=== PATIENT | female | born 1975 | race Caucasian/White ===

== ENCOUNTER 2022-11-29 21:17 | Emergency (ER) | payer SELFPAY ==
[~2022-11-29] VITALS: Ht 177.8 cm; Wt 83.0 kg
[~2022-11-29 21:17] MED LIST: ALBU18HF2 IH; COL100C PO; HYDR-3965 PO; IBUP-1984 PO; MACROBID PO; PHEN-786 PO
[2022-11-30 01:11] LABS: CLARITY,URINE CLEAR (Clear); COLOR,URINE YELLOW (Yellow); GLUCOSE, URINE NEGATIVE (Neg); KETONES,URINE NEGATIVE (Neg); LEUKOCYTE ESTERASE ,URINE NEGATIVE (Neg); NITRITES, URINE NEGATIVE (Neg); OCCULT BLOOD,URINE NEGATIVE (Neg); PROTEIN,URINE NEGATIVE (Neg); UROBILINOGEN,URINE 0.2 E.U/dL (0.2-1.0)
[2022-11-30 01:12] LABS: URINE HCG NEGATIVE (NEG)
[2022-11-30 01:32] LABS: UA COLLECTION TYPE CLN CATCH MIDSTREAM
--- NOTE | 2022-11-30 01:34 | NUR ---
patient put in room
[2022-11-30] MEDS ORDERED: ondansetron/PF 4mg/2ml inj IV ONE (01:40)
[2022-11-30] MEDS ORDERED: normal saline 1000ML IV soln IVB ONE (01:40)
[2022-11-30] MEDS ORDERED: morphine 4 MG/ML inj SYRINge IV ONE (01:40)
[2022-11-30 01:54] LABS: BASOPHILS % (AUTO) 0.5 % (0-1); EOSINOPHILS # (AUTO) 0.1 X10'3 (0-0.9); EOSINOPHILS % (AUTO) 1.5 % (0-6); HEMATOCRIT 39.7 % (35.0-45.0); HEMOGLOBIN 13.6 g/dl (12.0-16.0); LYMPHOCYTES # (AUTO) 3.3 X10'3 (1.1-4.8); LYMPHOCYTES % (AUTO) 42.3 % (21-51); MEAN CORPUSCULAR HEMOGLOBIN 32.4 PG (27.0-31.0); MEAN CORPUSCULAR HGB CONC 34.2 g/dL (33.0-36.5); MEAN CORPUSCULAR VOLUME 94.7 FL (78-98); MEAN PLATELET VOLUME 8.8 FL (7.4-10.4); MONOCYTES # (AUTO) 0.4 X10'3 (0-0.9); MONOCYTES % (AUTO) 4.8 % (2-12); NEUTROPHILS % (AUTO) 50.9 % (42-75); PLATELET COUNT 212 X10'3 (140-440); RED CELL DISTRIBUTION WIDTH 12.5 % (11.5-14.5); WHITE BLOOD COUNT 7.9 X10'3 (4.5-11.0)
[2022-11-30 02:00] LABS: ALANINE AMINOTRANSFERASE 20 U/L (12-78); ALBUMIN 4.4 G/DL (3.4-5.0); ALBUMIN/GLOBULIN RATIO 1.6 (1.1-1.5); ALKALINE PHOSPHATASE 73 IU/L (46-116); ANION GAP 10 (8-16); ASPARTATE AMINO TRANSFERASE 16 U/L (10-37); BILIRUBIN,TOTAL 0.3 MG/DL (0.1-1.0); BLOOD UREA NITROGEN 6 MG/DL (7-18); BUN/CREATININE RATIO 7.4 (6.6-38.0); CALCIUM 9.8 MG/DL (8.5-10.1); CHLORIDE 104 MMOL/L (99-107); CREATININE 0.81 MG/DL (0.40-0.90); GLUCOSE 99 MG/DL (70-104); LIPASE 83 U/L (73-393); SODIUM 138 MMOL/L (135-145); TOTAL CARBON DIOXIDE 24.4 MMOL/L (24-32); TOTAL PROTEIN 7.1 G/DL (6.4-8.2); eGFR 76 ML/MIN
[2022-11-30] MEDS ORDERED: iohexol 300mg/ml 100ml inj. ONE (02:33)
[2022-11-30 04:59] VITALS: BP 96/51
== END 2022-11-30 05:54 | disposition home or self-care (01) ==
LOC: ER 21:18
DX: R10.11 Right upper quadrant pain (principal); J45.909 Unspecified asthma, uncomplicated; Z88.1 Allergy status to other antibiotic agents; Z88.2 Allergy status to sulfonamides; Z88.6 Allergy status to analgesic agent; Z88.8 Allergy status to other drugs, medicaments and biological substances
CPT/HCPCS: 36415; 74177; 80053; 81003; 81025; 83690; 85025; 96361; 96374; 96375; 99285; J2270; J2405; J3490; J7030; Q9967

== ENCOUNTER → 2023-11-29 | Emergency (ER) | payer BC, OTHER ==
[~2023-11-29] VITALS: Ht 177.8 cm; Wt 74.5 kg
[2023-11-29 10:31] LABS: BASOPHILS % (AUTO) 0.6 % (0-1); EOSINOPHILS # (AUTO) 0.1 X10'3 (0-0.9); EOSINOPHILS % (AUTO) 1.5 % (0-6); HEMOGLOBIN 15.1 g/dl (12.0-16.0); LYMPHOCYTES # (AUTO) 2.1 X10'3 (1.1-4.8); LYMPHOCYTES % (AUTO) 33.7 % (21-51); MEAN CORPUSCULAR HEMOGLOBIN 32.8 PG (27.0-31.0); MEAN CORPUSCULAR HGB CONC 34.3 g/dL (33.0-36.5); MEAN CORPUSCULAR VOLUME 95.5 FL (78-98); MEAN PLATELET VOLUME 8.6 FL (7.4-10.4); MONOCYTES # (AUTO) 0.4 X10'3 (0-0.9); MONOCYTES % (AUTO) 5.7 % (2-12); NEUTROPHILS # (AUTO) 3.7 X10'3 (1.8-7.7); NEUTROPHILS % (AUTO) 58.5 % (42-75); PLATELET COUNT 228 X10'3 (140-440); RED CELL DISTRIBUTION WIDTH 12.3 % (11.5-14.5); WHITE BLOOD COUNT 6.4 X10'3 (4.5-11.0)
[2023-11-29 10:43] LABS: ALANINE AMINOTRANSFERASE 23 U/L (12-78); ALBUMIN 4.5 G/DL (3.4-5.0); ALBUMIN/GLOBULIN RATIO 1.4 (1.1-1.5); ALKALINE PHOSPHATASE 85 IU/L (46-116); ANION GAP 11 (8-16); ASPARTATE AMINO TRANSFERASE 29 U/L (10-37); BILIRUBIN,TOTAL 0.5 MG/DL (0.1-1.0); BLOOD UREA NITROGEN 10 MG/DL (7-18); BUN/CREATININE RATIO 15.2 (10.0-20.0); CALCIUM 9.8 MG/DL (8.5-10.1); CHLORIDE 101 MMOL/L (99-107); CREATININE 0.66 MG/DL (0.40-0.90); GLUCOSE 105 MG/DL (70-104); SODIUM 136 MMOL/L (135-145); TOTAL CARBON DIOXIDE 24.1 MMOL/L (24-32); TOTAL PROTEIN 7.7 G/DL (6.4-8.2); eCRCL 114 ML/MIN; eGFR > 90 ML/MIN
[2023-11-29 10:51] LABS: PRO BRAIN NATRIURETIC PEPTIDE 44 PG/ML (0-125)
[2023-11-29 10:52] LABS: POTASSIUM 4.2 MMOL/L (3.5-5.1)
[2023-11-29 11:48] VITALS: BP 125/78; PULSE 71; RESP 16; TEMP 98.6; O2SAT 95
== END | disposition home or self-care (01) ==
LOC: ER 10:08
DX: R07.9 Chest pain, unspecified (principal); Z53.21 Procedure and treatment not carried out due to patient leaving prior to being seen by health care provider
CPT/HCPCS: 29125; 36415; 71045; 80053; 83880; 84484; 85025; 93005; 99281; 99285

== ENCOUNTER 2025-05-23 16:34 | Emergency (ER) | payer OTHER ==
[~2025-05-23] VITALS: Ht 180.3 cm; Wt 72.7 kg
[2025-05-23 16:36] VITALS: BP 127/61; PULSE 61; RESP 18; TEMP 98.2; O2SAT 99
[2025-05-23] MEDS: TETanus/Pertussis (Acell)/Diphther VAC/PF (Tdap-Adult) 0.5ml syringe IMVAC ONE (17:10)
--- NOTE | 2025-05-23 17:23 | Physician Documentation ---
History of Present Illness ~ Chief Complaint: Laceration Stated Complaint: LAC ON LT INDEX FINGER Time Seen by MD: 16:48 OK to notify your PCP?: Yes Primary Medical Doctor: enoch Source: patient Mode of Arrival: POV Exam Limitations: no limitations HPI 50-year-old right-handed female with chief complaint laceration to her left index finger that occurred just prior to arrival about an hour ago. She states she was cutting bread at home and she ended up cutting her left index finger with a knife. Her last tetanus immunization was approximately 2018. She is able to bend her finger but states it is painful to do so. No pre arrival treatment. She states right after it happened she does grabbed her finger and because of how much it was bleeding she wrapped it in a towel and drove to the ER. No other concerns or complaints. Tetanus Within 5 Years: Yes Medication Reconciliation Allergies: Coded Allergies: amoxicillin (Verified Allergy, Severe, ANAPHYLAXIS, 11/29/22) clavulanic acid (Verified Allergy, Severe, ANAPHYLAXIS, 11/29/22) propoxyphene (Verified Allergy, Severe, ANAPHYLAXIS, 11/01/12) Sulfa (Sulfonamide Antibiotics) (Unverified Allergy, Intermediate, HIVES, 11/01/12) acetaminophen (Unverified Allergy, Unknown, 11/29/22) propoxyphene napsylate (Unverified Allergy, Unknown, 11/29/22) Uncoded Allergies: NSAIDS (Allergy, Severe, ANAPHYLAXIS, 11/29/22) Scheduled Albuterol Sulfate (Ventolin Hfa), 2 PUFFS IH Q6H PRN SOB, (Reported) Docusate Sodium* (Colace*), 100 MG PO BID, (Reported) Hydrocodone Bit/Acetaminophen 5/325 MG ([place] 5/325 MG), 1 TAB PO BID, (Reported) Ibuprofen* (Motrin*), 400 MG PO BID, (Reported) Nitrofurantoin/Nitrofuran Mac* (Macrobid*), 100 MG PO BID, (Reported) Phenazopyridine Hcl (Pyridium tablet), 100 MG PO TIDWM, (Reported) Past Medical History Past Medical History: No Pertinent History, Asthma, Bowel Obstruction, Hernia Past Surgical History: abdominal surgery Other Past Surgical History: Hernia repair, partial bowel resection Alcohol Use: None Drug Use: none Lives with: Spouse, Family Lives In: Home Occupation: employed, other Review of Systems All Other Systems at this time: Reviewed and Negative Physical Exam Vital Signs: Temperature: 98.2, Source: Oral, Heart Rate: 61, Respiratory Rate: 18, BP: 127/61, Pulse Oximetry: 99, Weight: 72.730 Physical Exam General Appearance: Alert, WD/WN. NAD. HEENT: NCAT, PERRL, EOMI. Neck: Supple, trachea midline. Lungs: Breathing unlabored Skin: Warm/dry, normal color. LEFT INDEX FINGER LACERATION ALONG DIGIT, NOT ACTIVELY BLEEDING, EDGES OF SKIN ARE WELL APPROXIMATED, NO EDEMA OR ECCHYMOSIS, AROM OF DIGIT IS FULL. CAP REFILL LESS THAN 2SECONDS AT FINGER TIP. Neurological: Alert and oriented x4, normal gait. Psychiatric: Affect congruent with mood. Procedures Splinting Location: left index finger Pre-Made Type: digit splint Pre-Proc Neuro Vasc Exam: normal Post-Proc Neuro Vasc Exam: normal Tolerated Procedure Well?: yes, no complications Laceration/Wound Repair Laceration : Location: left index finger Length (cm): 2 Margins: revised Foreign Body: not identified Repaired: skin Wound Repaired With: Dermabond Splint Applied?: Yes Type of Splint Applied: digit splint Progress Results/Orders Results/Orders Orders - GIOVANNI THOMPSON General Nursing Order (05/23/25 16:55) Dermabond To Bedside (05/23/25 16:55) Completed Orders - GIOVANNI THOMPSON Tetanus/Pertuss/Diph Acell/Pf (Boostrix (05/23/25 16:55) Medications Received in ER Medications (Trade) Dose Ordered Sig/Liliana Route PRN Reason Start Time Stop Time Status Last Admin Dose Admin (Boostrix vaccine syringe) 0.5 ml ONCE ONCE IMVAC 05/23/25 16:55 05/23/25 16:57 DC 05/23/25 17:10 0.5 ML Vital Signs 05/23/25 16:36 Temp 98.2 Pulse 61 Resp 18 B/P (MAP) 127/61 Pulse Ox 99 Medical Decision Making Differential Dx:Considerations: Include: Abrasion, Avulsion, Contusion, Laceration, Fracture, Hematoma, Neurovascular injury, Retained foreign body, Other Additional Comments DUE TO THE LOCATION OF THE LACERATION BEING ON THE DORSAL SURFACE RATHER THAN PALMAR SURFACE LESS LIKELY FOR TENDON INJURY PATIENT ALSO WAS ABLE TO BEND HER FINGER IN TRIAGE. LACERATION APPEARED VERY SHALLOW, NO ACTIVE BLEEDING, NO SURROUNDING EDEMA, XRAY CONSIDERED TO R/O OPEN FRACTURE BUT GIVEN SHALLOW NATURE OF LACERATION UNLIKELY. Departure Time of Disposition: 17:17 Disposition: 01 HOME / SELF CARE / HOMELESS Impression: Primary Impression: Laceration Additional Impression: Immunization due Condition: Stable Discharge Instructions: Laceration Care, Adult, [id number] Additional Instructions: DO NOT GET WET X 72HOURS I AM NOT CONCERNED ABOUT TENDON INJURY DUE TO LOCATION AND THE FACT THAT YOU WHERE ABLE TO BEND YOUR FINGER SOME, IT WAS JUST PAINFUL WHEN DOING SO WE UPDATED YOUR TETANUS IZ IF SIGNS OR SYMPTOMS OF INFECTION RETURN TO ER Referrals: NO PRIMARY CARE PROVIDER (PCP) Education Educated: Patient Educated regarding: diagnosis, treatment, need for follow up Signature Scribe Signature: X Attestation: GIOVANNI WATTS May 23, 2025 17:23
== END 2025-05-23 17:40 | disposition home or self-care (01) ==
LOC: ER 16:35
DX: S61.211A Laceration without foreign body of left index finger without damage to nail, initial encounter (principal); Z88.1 Allergy status to other antibiotic agents; Z88.2 Allergy status to sulfonamides; Z88.6 Allergy status to analgesic agent; Z98.890 Other specified postprocedural states; Z79.899 Other long term (current) drug therapy; W26.0XXA Contact with knife, initial encounter; Y93.89 Activity, other specified; Y92.89 Other specified places as the place of occurrence of the external cause; Y99.8 Other external cause status
CPT/HCPCS: 12001; 90471; 90715; 99283

== ENCOUNTER 2025-06-20 12:33 | Emergency (ER) | payer OTHER ==
[~2025-06-20] VITALS: Ht 177.8 cm; Wt 72.7 kg
[2025-06-20 12:38] VITALS: TEMP 98.4
--- NOTE | 2025-06-20 13:13 | Physician Documentation ---
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 She states that she was not her usual state of health this morning, noticed some back pain while lifting a patient. The pain gradually got worse. She went home, took Tylenol and baclofen. She bent over. She felt a sudden pop and marked worsening of back pain accompanied by urinary incontinence. She also reports numbness around her anus. No palliating factors. Aggravated by any motion. Did not experienced this in the past, this is markedly different from her chronic back pain. Able to ambulate, denies any lower extremity weakness or paresthesias. Denies history of IV drug use ever. Does not take blood thinners. Denies any concern for tobacco, alcohol or illicit substances use Medication Reconciliation Allergies: Coded Allergies: amoxicillin (Verified Allergy, Severe, ANAPHYLAXIS, 06/20/25) clavulanic acid (Verified Allergy, Severe, ANAPHYLAXIS, 06/20/25) propoxyphene (Verified Allergy, Severe, ANAPHYLAXIS, 06/20/25) Sulfa (Sulfonamide Antibiotics) (Unverified Allergy, Intermediate, HIVES, 06/20/25) acetaminophen (Unverified Allergy, Unknown, 06/20/25) propoxyphene napsylate (Unverified Allergy, Unknown, 06/20/25) Uncoded Allergies: NSAIDS (Allergy, Severe, ANAPHYLAXIS, 11/29/22) Scheduled Albuterol Sulfate (Ventolin Hfa), 2 PUFFS IH Q6H PRN SOB, (Reported) Docusate Sodium* (Colace*), 100 MG PO BID, (Reported) Hydrocodone Bit/Acetaminophen 5/325 MG ([place] 5/325 MG), 1 TAB PO BID, (Reported) Ibuprofen* (Motrin*), 400 MG PO BID, (Reported) Nitrofurantoin/Nitrofuran Mac* (Macrobid*), 100 MG PO BID, (Reported) Phenazopyridine Hcl (Pyridium tablet), 100 MG PO TIDWM, (Reported) Past Medical History Past Medical History: No Pertinent History, Asthma, Bowel Obstruction, Hernia Past Surgical History: abdominal surgery Other Past Surgical History: Hernia repair, partial bowel resection Alcohol Use: None Drug Use: none Lives with: Spouse, Family Lives In: Home Occupation: employed, other Review of Systems ROS 10 point review of systems was performed and unless noted above in HPI is negative for acute process/complaint. Physical Exam Physical Exam Vital Signs: Temperature: 98.4, Source: Temporal, Heart Rate: 102, Respiratory Rate: 16, BP: 151/89, Pulse Oximetry: 98, Weight: 72.730 Oxygen Flow Rate: 0 Physical Exam GENERAL: Awake, alert, oriented, GCS 15, no apparent distress, non-toxic appearing, answers questions, follows commands appropriately. HEENT: Atraumatic, normocephalic, pupils equal, extraocular muscles intact, sclerae anicteric, mucus membranes moist, oropharynx is clear, no stridor. NECK: supple, full active range of motion, trachea midline, no thyromegaly, no lymphadenopathy, no JVD. CARDIOVASCULAR: regular rate/rhythm, no murmurs/gallops/rubs, Pulses are 2+ in all extremities and symmetric. Capillary refill less than 2 seconds. PULMONARY: Nonlabored, good air movement ,no respiratory distress, speaking in full sentences, clear to auscultation bilaterally, no wheezing, no ronchi, no rales, no accessory muscle use. GASTROINTESTINAL: Soft, non-tender, non-distended, normal active bowel sounds, no organomegaly, no pulsatile masses, no CVA tenderness. NEUROLOGIC: Lucid with normal mental status. Normal facial symmetry. Moves all extremities symmetrically and with purpose. No truncal ataxia. Speech is fluid without evidence of dysarthria or aphasia, no focal deficits appreciated. MUSCULOSKELETAL: There is full range of motion of all extremities. There is no joint pain or joint swelling or joint erythema. There is no muscle pain or tenderness or swelling. EXTREMITIES: warm, well-perfused, no cyanosis, no clubbing, no edema, no acute deformities. Skin: warm, dry, no rashes or lesions, no jaundice, no petechiae orpurpura. No ecchymosis. PSYCHIATRIC: Normal affect, normal insight, normal concentration. Focused exam: [] Progress Results/Orders Results/Orders Orders - MINA POE DO Ct Lumbar Spine (06/20/25 13:07) Mri Lumbar Spine (06/20/25 15:00) Urinalysis, Cult If Indicated (06/20/25 13:07) Completed Orders - MINA POE DO Ct Lumbar Spine (06/20/25 13:07) Mri Lumbar Spine (06/20/25 15:00) Cbc/Diff (06/20/25 13:07) CK (06/20/25 13:07) ESR (06/20/25 13:07) C-Reactive Protein (06/20/25 13:07) CMP (06/20/25 13:07) Morphine 4mg/Ml Inj. (Morphine Inj.) (06/20/25 13:15) Ondansetron Inj. (Zofran 4mg/2ml Vial) (06/20/25 13:15) Medications Received in ER Medications (Trade) Dose Ordered Sig/Liliana Route PRN Reason Start Time Stop Time Status Last Admin Dose Admin (morphine inj.) 4 mg ONCE ONCE IV 06/20/25 13:15 06/20/25 13:23 DC 06/20/25 13:43 4 MG (Zofran 4mg/2ml vial) 4 mg ONCE ONCE IV 06/20/25 13:15 06/20/25 13:23 DC 06/20/25 13:43 4 MG Vital Signs 06/20/25 06/20/25 06/20/25 12:38 13:43 13:43 Temp 98.4 Pulse 102 79 Resp 16 16 16 B/P (MAP) 151/89 120/70 (87) Pulse Ox 98 98 O2 Flow Rate 0 Laboratory Tests Test 06/20/25 13:28 White Blood Count 6.2 Red Blood Count 3.82 L Hemoglobin 12.5 Hematocrit 36.0 Mean Corpuscular Volume 94.3 Mean Corpuscular Hemoglobin 32.8 H Mean Corpuscular Hemoglobin Concent 34.7 Red Cell Distribution Width 12.5 Platelet Count 209 Mean Platelet Volume 9.1 Neutrophils (%) (Auto) 53.0 Lymphocytes (%) (Auto) 39.6 Monocytes (%) (Auto) 5.1 Eosinophils (%) (Auto) 1.9 Basophils (%) (Auto) 0.4 Neutrophils # (Auto) 3.3 Lymphocytes # (Auto) 2.5 Monocytes # (Auto) 0.3 Eosinophils # (Auto) 0.1 Basophils # (Auto) 0.0 CBC Comment Erythrocyte Sedimentation Rate 4 Sodium Level 138 Potassium Level 3.8 Chloride Level 103 Carbon Dioxide Level 26.1 Anion Gap 9 Blood Urea Nitrogen 14 Creatinine 0.58 Estimated GFR/1.73 m2 > 90 BUN/Creatinine Ratio 24.1 H Glucose Level 94 Calcium Level 9.0 Total Bilirubin 0.5 Aspartate Amino Transf (AST/SGOT) 22 Alanine Aminotransferase (ALT/SGPT) 27 Alkaline Phosphatase 61 Total Creatine Kinase 65 C-Reactive Protein 0.13 Total Protein 6.9 Albumin 4.2 Globulin 2.7 Albumin/Globulin Ratio 1.6 H Chemistry Comments Medical Decision Making Findings Facility Status: ED Holds, RME process The plan was discussed with the patient, who demonstrates clear understanding of the plan and is in agreement with the plan unless otherwise noted in the chart. All questions have been answered, all concerns were addressed unless otherwise documented. I was available throughout their ED stay for frequent reassessment and questions. Differential Diagnoses (considered and possible or likely): [Lumbar spine fracture, dislocation, cauda equina, conus medullaris, muscle spasm, less likely to be epidural abscess or epidural hematoma as she has not no risk factors for such] ??Differential Diagnoses (considered and unlikely, not requiring evaluation currently): [See above] MDM Data Please see HPI for the following: Independent Historians and external Records Review. Historian: [Patient] Independent Historians: ?[Record review] Medication Management: [Reviewed medication list] Social History and determinants: [Reviewed] Please see the body of the note for the following: Any independent interpretations of ECG, imaging studies. All vitals signs/haemodynamics, ordered tests were independently reviewed and interpreted by myself. Nursing triage complaint and vitals reviewed, additional nursing notes were reviewed as available and I agree unless otherwise noted or documented in contradiction in the chart Vital Signs: Independently reviewed Labs: Independently interpreted Imaging: Independently interpreted Old Medical Records: Independently reviewed, see HPI for relevant summary and information Pulse Oximetry: [100% ] interpreted as [normal on room air] by me [[employer] Lead: [Regular Rate, Regular rhythm, no ectopy, NSR] reviewed and in terpreted by me] Additionally notably showing: [Hemodynamics reviewed. The patient is initially tachycardic, which had improved with the pain management. There was no evidence of respiratory distress. No hypotension. CBC normal metabolic panel notable for dehydration. CT was obtained showing no acute fracture or dislocation. Given presenting urinary incontinence and paresthesia around her anus, we will obtain MRI. MRI was obtained. It shows broad-based posterior disc bulge at L3-L4. Mild canal stenosis. Moderate left foraminal stenosis.] Tests considered but not ordered include: [Not applicable] Social Determinants of Health Impact: Patient was evaluated in [facility], or [facility] [place] to healthcare due to below par ratio of patient to medical providers. [] Comorbid Conditions Impacting Present Evaluation and Care/Treatment: [Chronic back pain] Management Discussions with other Healthcare Providers: [] Treatment and Disposition Medication Management (Given or considered): [Multimodal pain management]. See EMR for details Consideration for Hospitalization/Escalation/Deescalation of Care: Admission for observation has been considered, [however the patient is able to tolerate p.o., their symptoms are controlled, they are able to rely on oral medications, and their chief complaint/diagnosis can be managed on outpatient basis.] ?ED Course:?[No clinical deterioration] ?Shared decision making:?[Patient is hemodynamically stable for discharge home with follow with their primary care provider. [ ] Specific and cautious return precautions provided and discussed with full understanding. Any incidental findings were also discussed and follow up recommendations given. [] All questions answered. Patient/family were able to verbalize back return precautions. Patient/family agree to plan. Copies of imaging and laboratory studies were provided.] Code status:?FULL Please see the full Electronic Medical Record for full details of nursing documentation, medications list, other records of complete past medical history and conditions, vital signs, laboratory studies, and any radiologic study interpretations by radiologists. Portions of this note were completed using [employer] dictation software and as a result there may exist minor errors in spelling. I have reviewed elements of past family and social history and agree as included in note. Departure Disposition: HOME / SELF CARE / HOMELESS Impression: Primary Impression: Acute back pain Condition: Improved Discharge Instructions: Acute Back Pain, Adult Referrals: NO PRIMARY CARE PROVIDER (PCP) Prescriptions Oxycodone HCl/Acetaminophen (Percocet 5-325 mg Tablet) 5 Mg-325 Mg Tablet 1 TAB PO TID PRN PRN for pain for 5 Days, #15 TAB 0 Refills Prov: MINA POE DO 06/20/25 Naproxen (Naproxen) 500 Mg Tablet 1 TAB PO Q12H, #20 TAB Prov: MINA POE DO 06/20/25 Education Educated: Patient Educated regarding: diagnosis, treatment, prognosis, need for follow up Signature Scribe Signature: No scribe Attestation: This note accurately reflects clinical decisions, work performed by myself, Mina Poe, MINA HARRY DO Jun 20, 2025 13:13
[2025-06-20] MEDS: ondansetron/PF 4mg/2ml inj IV ONE (13:43)
[2025-06-20] MEDS: morphine 4 MG/ML inj SYRINge IV ONE (13:43)
[2025-06-20 14:16] LABS: MEAN PLATELET VOLUME 9.1 FL (7.4-10.4); RED CELL DISTRIBUTION WIDTH 12.5 % (11.5-14.5)
[2025-06-20 14:28] LABS: CREATININE 0.58 MG/DL (0.40-0.90); TOTAL CARBON DIOXIDE 26.1 MMOL/L (24-32); eCRCL 127 ML/MIN; eGFR > 90 ML/MIN
--- NOTE | 2025-06-20 15:06 | RADIOLOGY REPORT ---
EXAM: CT CT LUMBAR SPINE INDICATION: sudden onset pain, urinary incontinence, saddle pa thingresthesia p lifting EXAM DATE: 06/20/2025 02:04 PM COMPARISON: CT ABDOMEN PELVIS on DOS: 11/30/22 TECHNIQUE: Multiple axial CT images of the lumbar spine were obtained using bone algorithm. Axial and coronal reformatting was done. Bone and soft tissue windows were reviewed. Radiation Dose Information: CT Dose: CTDI volume is 24.51 mGy. Dose-length product is 803.82 mGy*cm Findings: There are 5 nonrib-bearing lumbar vertebrae. There is no evidence of an acute fracture or spondylolisthesis. The vertebral body heights are well-m aintained. Intervertebral disc spacers at L4/L5 and L5/S1. No neuroforaminal narrowing. No spinal canal stenosis. The alignment is within normal limits. The paraspinal soft tissues appear within normal limits. The v isualized portions of the abdomen are unremarkable. T12-L1: Normal L1-L2: Normal L2-L3: Normal L3-L4: Normal L4-L5: Normal L5-S1: Normal Impression: 1. No evidence of an acute fracture. 2. If there is clinical concern for cauda equina type symptoms, recommend MRI for further evaluation.
--- NOTE | 2025-06-20 16:11 | RADIOLOGY REPORT ---
PROCEDURE: MRI lumbar spine without contrast. INDICATION: Sudden back pain, urinary incontinence, saddle paresthesias after lifting COMPARISON: CT CT LUMBAR SPINE on DOS: 06/20/25 TECHNIQUE: MRI lumbar spine without intravenous contrast utilizing multiplanar, multisequence techni que. FINDINGS: The alignment of the lumbar spine vertebral bodies is preserved. Bone marrow signal is homogenous and unremarkable. The vertebral body heights are maintained. There are interbody implants at L4-L5 and L 5-S1. The conus medullaris is normal in signal characteristics and terminates at the T12-L1 level. Mi ld fatty replacement of the lumbar spine paraspinal muscles at L4-L5 and L5-S1. At the T12-L1 level, there is no evidence of central spinal canal or neuroforaminal stenosis. At the L1-L2 level, there is no evidence of central spinal canal or neuroforaminal stenosis. At the L2-L3 level, there is no evidence of central spinal canal or neural foraminal stenosis. At the L3-L4 level, there is broad-based posterior disc bulge. There is facet arthropathy. Mild spi nal stenosis. There is moderate left and mild right neural foraminal stenosis. At the L4-L5 level, there are postsurgical changes. No significant spinal stenosis. Mild bilateral l igamentum flavum thickening. The neural foramina are patent. At the L5-S1 level, there are postsurgical changes. No significant spinal canal or neuroforaminal st enosis. Other: None. IMPRESSION: 1. Broad-based posterior disc bulge at L3-L4 contributing to mild canal stenosis. Moderate left and mild right neural foraminal stenosis at L3-L4. 2. Postsurgical changes from intervertebral disc replacement at L4-L5 and L5-SNo disc herniation. HS:Y
[2025-06-20] MEDS ORDERED: OXYC-145 PO (16:23)
[2025-06-20] MEDS ORDERED: NAPR-56 PO (16:23)
[2025-06-20 16:35] VITALS: BP 116/56
[2025-06-20] MEDS: dexamethasone sod phosphate 10mg/ml inj IV STA (16:37)
[2025-06-20 17:27] VITALS: PULSE 65; RESP 18; O2SAT 98
== END 2025-06-20 17:29 | disposition home or self-care (01) ==
LOC: ER 12:33
DX: M54.50 Low back pain, unspecified (principal); R20.0 Anesthesia of skin; Z88.0 Allergy status to penicillin; Z88.2 Allergy status to sulfonamides; Z98.890 Other specified postprocedural states
CPT/HCPCS: 36415; 72131; 72148; 80053; 82550; 85025; 85651; 86140; 96374; 96375; 99285; J1100; J2270; J2405; J7030